=== PATIENT | female | born 1985 | race Caucasian/White ===

== ENCOUNTER 2019-04-01 20:27 | Inpatient (IN) | payer OTHER ==
[~2019-04-01] VITALS: Ht 162.6 cm; Wt 74.0 kg
[~2019-04-01 20:27] MED LIST: INSNOV SQ; LE SQ; MUPI15CR TP; PREN1TAB80 PO
[2019-04-01] MEDS ORDERED: TRAZ-220 PO (21:15)
[2019-04-01] MEDS ORDERED: ASPI-1192 PO (21:15)
[2019-04-01] MEDS ORDERED: INSU100V SQ (21:15)
[2019-04-01] MEDS ORDERED: PRAZ2 PO (21:15)
[2019-04-01] MEDS ORDERED: LORazepam 2 MG TABLET PO ONE (21:15)
[2019-04-01] MEDS ORDERED: DEXT15LI PO (21:15)
[2019-04-01] MEDS ORDERED: INSULIN REGULAR, HUMAN 100 UNITS/ML SQ ONE ×2 (21:15→22:00)
[2019-04-01] MEDS ORDERED: HYDR-4031 PO (21:15)
[2019-04-01] MEDS ORDERED: OMEP20 PO (21:15)
[2019-04-01] MEDS ORDERED: TRAZ-252 PO (21:15)
[2019-04-01] MEDS ORDERED: IBUP-2071 PO (21:15)
[2019-04-01 21:24] LABS: GLUCOSE,POINT OF CARE 198 MG/DL (70-110)
[2019-04-01] MEDS ORDERED: ACETAMINOPHEN 325 MG TABLET PO PRN (21:30)
[2019-04-01] MEDS ORDERED: IBUPROFEN 600 MG TABLET PO ONE (21:30)
[2019-04-01] MEDS ORDERED: ONDANSETRON HCL 4 MG/2 ML VIAL IVP PRN (21:30)
[2019-04-01] MEDS ORDERED: 0.9% SODIUM CHLORIDE 10 ML SYRINGE IVP PRN (21:30)
[2019-04-01 21:39] LABS: BASOPHILS % (AUTO) 0.6 % (0.0-2.0); EOSINOPHILS % (AUTO) 1.7 % (1.0-6.0); HEMATOCRIT 40.5 % (36-46); HEMOGLOBIN 13.7 g/dL (12.0-16.0); LYMPHOCYTES # (AUTO) 1.9 K/uL (1.0-4.8); MEAN CORPUSCULAR HEMOGLOBIN 29.6 pg (26.0-34.0); MEAN CORPUSCULAR HGB CONC 33.9 G/dL (31.0-37.0); MEAN CORPUSCULAR VOLUME 87 fL (80-100); MONOCYTES # (AUTO) 0.4 K/uL (0.1-1.0); MONOCYTES % (AUTO) 5.8 % (2.0-9.0); NEUTROPHILS # (AUTO) 4.6 K/uL (1.8-7.7); NEUTROPHILS % (AUTO) 64.9 % (40.0-70.0); PLATELET COUNT (AUTO) 226 K/uL (150-450); RED BLOOD CELL COUNT(AUTO) 4.64 MIL/uL (4.00-5.20); RED CELL DISTRIBUTION WIDTH 13.8 % (11.5-14.5)
[2019-04-01 21:55] LABS: ANION GAP 8 mmol/L (8-16); CALCIUM, TOTAL 8.7 mg/dL (8.8-10.5); CARBON DIOXIDE 28 mmol/L (22-29); CHLORIDE 101 mmol/L (98-107); GLOMERULAR FILTR. RATE CALC > 60 mL/min (>60); GLUCOSE,RANDOM 222 mg/dL (70-110); POTASSIUM 3.8 mmol/L (3.5-5.1); SODIUM SERUM 137 mmol/L (136-145); UREA NITROGEN, BLOOD 8 mg/dL (7-18)
[2019-04-01 22:00] LABS: AMPHET/METH SCREEN,URINE NEGATIVE (NEGATIVE); BARBITURATE SCREEN, URINE NEGATIVE (NEGATIVE); BENZODIAZEPINES SCREEN,URINE NEGATIVE (NEGATIVE); CANNABINOID SCREEN,URINE NEGATIVE (NEGATIVE); COCAINE SCREEN,URINE NEGATIVE (NEGATIVE); METHADONE SCREEN, URINE NEGATIVE (NEGATIVE); OPIATE SCREEN,URINE NEGATIVE (NEGATIVE); PHENCYCLIDINE SCREEN,URINE NEGATIVE (NEGATIVE)
[2019-04-01 22:07] LABS: ALANINE AMINOTRANSFERASE 14 U/L (12-78); ALBUMIN 3.8 g/dL (3.4-5.0); ALKALINE PHOSPHATASE 81 U/L (46-116); ASPARTATE AMINOTRANSFERASE 14 U/L (15-37); BILIRUBIN,TOTAL 0.6 mg/dL (0.1-1.0); HCG,QUANTITATIVE < 1 mIU/mL (0-6); TOTAL PROTEIN, SERUM 7.5 g/dL (6.4-8.2)
[2019-04-01] MEDS ORDERED: NICOTINE 14 MG/24 HOUR PATCH TD PRN (22:30)
[2019-04-01] MEDS ORDERED: LOPERAMIDE HCL 2 MG CAPSULE PO PRN (22:30)
[2019-04-01] MEDS ORDERED: DOCUSATE SODIUM 100 MG CAPSULE PO PRN (22:30)
[2019-04-01] MEDS ORDERED: MAGNESIUM HYDROXIDE SUSPENSION 30 ML UDCUP PO PRN (22:30)
[2019-04-01] MEDS ORDERED: CloNIDine HCL 0.1 MG TABLET PO PRN (22:30)
[2019-04-01] MEDS ORDERED: MAG HYDROX/AL HYDROX/SIMETH ES 30 ML SUSPENSION UDCUP PO PRN (22:30)
[2019-04-01] MEDS ORDERED: ALBUTEROL SULFATE HFA 90 MCG/PUFF 8 GM INHALER IH PRN (22:30)
[2019-04-01] MEDS ORDERED: DEXTROSE 50%-WATER 25 GM/50 ML SYRINGE IVP PRN (22:30)
[2019-04-01] MEDS ORDERED: PETROLATUM,WHITE 28 GM JELLY TP PRN (22:30)
[2019-04-01 22:39] VITALS: BP 122/79
[2019-04-01] MEDS ORDERED: INFLUENZA VIRUS VACCINE QVS 2019-20 (3YR+)/PF 60 MCG/0.5 ML SYRINGE IM ONE (23:00)
[2019-04-01] MEDS ORDERED: PNEUMOCOCCAL VACCINE POLYVALENT 0.5 ML VIAL [PPSV23] IM ONE (23:00)
[2019-04-02] MEDS: TraZODone HCL 100 MG TABLET PO PRN ×2 (00:52→20:22)
[2019-04-02 06:26] VITALS: BP 106/66
[2019-04-02] MEDS: INSULIN LISPRO 100 UNITS/ML SQ PRN ×3 (06:36→20:23)
[2019-04-02 06:47] LABS: GLUCOMETER DEV NAME(LOC) 6N.1; GLUCOSE,POINT OF CARE 345 MG/DL (70-110)
[2019-04-02 07:39] LABS: HEMOGLOBIN A1C 9.9 % (4.5-6.2)
[2019-04-02 07:54] LABS: THYROID STIMULATING HORMONE 1.59 uIU/mL (0.36-3.74)
[2019-04-02 09:00] VITALS: BP 102/67
[2019-04-02] MEDS: ESCITALOPRAM OXALATE 10 MG TABLET PO SCH (09:00)
[2019-04-02] MEDS: HydrOXYzine PAMOATE 50 MG CAPSULE PO SCH ×2 (10:15→20:22)
[2019-04-02] MEDS: OMEPRAZOLE 20 MG CAPSULE PO SCH (10:15)
[2019-04-02] MEDS: INSULIN GLARGINE,HUM.REC.ANLOG 100 UNITS/ML SQ SCH (10:20)
[2019-04-02] MEDS: GuaiFENesin/D-METHORPHAN [SUGAR-FREE] 200-20MG/10 ML SYRUP UDCUP PO PRN (17:05)
[2019-04-02] MEDS ORDERED: INSLAN SQ (17:41)
[2019-04-02 18:09] LABS: GLUCOMETER DEV NAME(LOC) 6N.1; GLUCOSE,POINT OF CARE 238 MG/DL (70-110)
[2019-04-02 18:09] LABS: GLUCOMETER DEV NAME(LOC) 6N.1; GLUCOSE,POINT OF CARE 137 MG/DL (70-110)
[2019-04-02 19:55] VITALS: BP 97/72
[2019-04-02] MEDS: GABAPENTIN 300 MG CAPSULE PO SCH (20:22)
[2019-04-02] MEDS: PRAZOSIN HCL 2 MG CAPSULE PO SCH (20:22)
[2019-04-02 21:34] LABS: GLUCOMETER DEV NAME(LOC) 6N.1; GLUCOSE,POINT OF CARE 203 MG/DL (70-110)
[2019-04-02] MEDS: ACETAMINOPHEN 325 MG TABLET PO PRN (22:28)
[2019-04-03 00:04] VITALS: BP 96/62
[2019-04-03] MEDS: GuaiFENesin/D-METHORPHAN [SUGAR-FREE] 200-20MG/10 ML SYRUP UDCUP PO PRN ×2 (02:07→08:07)
[2019-04-03 06:05] VITALS: BP 96/63
[2019-04-03] MEDS: INSULIN LISPRO 100 UNITS/ML SQ PRN ×3 (06:05→18:01)
[2019-04-03 07:45] VITALS: BP 103/67
[2019-04-03 08:03] LABS: GLUCOMETER DEV NAME(LOC) 6N.1; GLUCOSE,POINT OF CARE 220 MG/DL (70-110)
[2019-04-03 08:03] LABS: GLUCOMETER DEV NAME(LOC) 6N.1; GLUCOSE,POINT OF CARE 289 MG/DL (70-110)
[2019-04-03] MEDS: HydrOXYzine PAMOATE 50 MG CAPSULE PO SCH (08:06)
[2019-04-03] MEDS: OMEPRAZOLE 20 MG CAPSULE PO SCH (08:06)
[2019-04-03] MEDS: ESCITALOPRAM OXALATE 10 MG TABLET PO SCH (08:07)
[2019-04-03] MEDS: INSULIN GLARGINE,HUM.REC.ANLOG 100 UNITS/ML SQ SCH (08:09)
[2019-04-03 11:38] VITALS: BP 103/65
[2019-04-03] MEDS: BusPIRone HCL 5 MG TABLET PO SCH ×3 (12:10→20:28)
[2019-04-03] MEDS: IBUPROFEN 400 MG TABLET PO PRN (12:11)
[2019-04-03 12:18] LABS: GLUCOMETER DEV NAME(LOC) 6N.1; GLUCOSE,POINT OF CARE 221 MG/DL (70-110)
[2019-04-03 15:42] VITALS: BP 95/66
[2019-04-03] MEDS: ACETAMINOPHEN 325 MG TABLET PO PRN (15:58)
[2019-04-03 19:05] LABS: GLUCOMETER DEV NAME(LOC) 6N.1; GLUCOSE,POINT OF CARE 204 MG/DL (70-110)
[2019-04-03 19:47] VITALS: BP 95/56
[2019-04-03] MEDS: PRAZOSIN HCL 2 MG CAPSULE PO SCH (20:28)
[2019-04-03] MEDS: GABAPENTIN 300 MG CAPSULE PO SCH (20:28)
[2019-04-03 21:16] LABS: GLUCOMETER DEV NAME(LOC) 6N.1; GLUCOSE,POINT OF CARE 137 MG/DL (70-110)
[2019-04-04] MEDS: INSULIN LISPRO 100 UNITS/ML SQ PRN ×4 (05:50→20:04)
[2019-04-04] MEDS: GuaiFENesin/D-METHORPHAN [SUGAR-FREE] 200-20MG/10 ML SYRUP UDCUP PO PRN ×2 (05:50→20:03)
[2019-04-04 07:13] LABS: ANION GAP 8 mmol/L (8-16); CALCIUM, TOTAL 8.2 mg/dL (8.8-10.5); CARBON DIOXIDE 27 mmol/L (22-29); CHLORIDE 103 mmol/L (98-107); CREATININE 0.68 mg/dL (0.60-1.30); GLOMERULAR FILTR. RATE CALC > 60 mL/min (>60); GLUCOSE,RANDOM 188 mg/dL (70-110); POTASSIUM 3.7 mmol/L (3.5-5.1); SODIUM SERUM 138 mmol/L (136-145)
[2019-04-04 07:28] LABS: UREA NITROGEN, BLOOD 13 mg/dL (7-18)
[2019-04-04 07:30] LABS: GLUCOMETER DEV NAME(LOC) 6N.1; GLUCOSE,POINT OF CARE 157 MG/DL (70-110)
[2019-04-04 07:50] VITALS: BP 97/68
[2019-04-04] MEDS: FLUoxetine HCL 20 MG CAPSULE PO SCH (08:18)
[2019-04-04] MEDS: BusPIRone HCL 5 MG TABLET PO SCH ×3 (08:18→20:03)
[2019-04-04] MEDS: OMEPRAZOLE 20 MG CAPSULE PO SCH (08:18)
[2019-04-04] MEDS: INSULIN GLARGINE,HUM.REC.ANLOG 100 UNITS/ML SQ SCH (08:19)
[2019-04-04] MEDS ORDERED: CITALOPRAM HYDROBROMIDE 20 MG TABLET PO SCH (09:00)
[2019-04-04 12:15] VITALS: BP 102/68
[2019-04-04] MEDS: ACETAMINOPHEN 325 MG TABLET PO PRN ×2 (12:17→23:41)
[2019-04-04 12:38] LABS: GLUCOMETER DEV NAME(LOC) 6N.1; GLUCOSE,POINT OF CARE 292 MG/DL (70-110)
[2019-04-04 16:09] VITALS: BP 102/74
[2019-04-04] MEDS: IBUPROFEN 400 MG TABLET PO PRN (16:21)
[2019-04-04 19:25] VITALS: BP 91/60
[2019-04-04 20:03] LABS: GLUCOMETER DEV NAME(LOC) 6N.1; GLUCOSE,POINT OF CARE 287 MG/DL (70-110)
[2019-04-04] MEDS: PRAZOSIN HCL 2 MG CAPSULE PO SCH (20:03)
[2019-04-04] MEDS: GABAPENTIN 300 MG CAPSULE PO SCH (20:03)
[2019-04-04] MEDS: TraZODone HCL 100 MG TABLET PO PRN (20:03)
[2019-04-04 20:28] LABS: GLUCOMETER DEV NAME(LOC) 6N.1; GLUCOSE,POINT OF CARE 189 MG/DL (70-110)
[2019-04-04 23:35] VITALS: BP 94/62
[2019-04-05 06:02] VITALS: BP 96/67
[2019-04-05] MEDS: IBUPROFEN 400 MG TABLET PO PRN ×2 (06:38→22:00)
[2019-04-05] MEDS: GuaiFENesin/D-METHORPHAN [SUGAR-FREE] 200-20MG/10 ML SYRUP UDCUP PO PRN ×2 (06:40→12:37)
[2019-04-05 07:38] VITALS: BP_SYST 108; BP_DIAS 54; BP_DIAS 75
[2019-04-05] MEDS: OMEPRAZOLE 20 MG CAPSULE PO SCH (07:59)
[2019-04-05] MEDS: BusPIRone HCL 5 MG TABLET PO SCH ×3 (07:59→20:28)
[2019-04-05] MEDS: FLUoxetine HCL 20 MG CAPSULE PO SCH (07:59)
[2019-04-05] MEDS: INSULIN GLARGINE,HUM.REC.ANLOG 100 UNITS/ML SQ SCH (09:53)
[2019-04-05 11:24] VITALS: BP 103/66
[2019-04-05] MEDS: INSULIN LISPRO 100 UNITS/ML SQ PRN ×3 (12:37→21:10)
[2019-04-05 16:06] VITALS: BP 109/71
[2019-04-05 19:55] VITALS: BP 101/68
[2019-04-05 19:58] LABS: GLUCOMETER DEV NAME(LOC) 6N.1; GLUCOSE,POINT OF CARE 224 MG/DL (70-110)
[2019-04-05 19:58] LABS: GLUCOMETER DEV NAME(LOC) 6N.1; GLUCOSE,POINT OF CARE 79 MG/DL (70-110)
[2019-04-05 19:58] LABS: GLUCOMETER DEV NAME(LOC) 6N.1; GLUCOSE,POINT OF CARE 250 MG/DL (70-110)
[2019-04-05] MEDS: GABAPENTIN 300 MG CAPSULE PO SCH (20:27)
[2019-04-05] MEDS: PRAZOSIN HCL 1 MG CAPSULE PO SCH (21:00)
[2019-04-05] MEDS: TraZODone HCL 100 MG TABLET PO PRN (21:10)
[2019-04-05] MEDS: ONDANSETRON HCL 4 MG TABLET PO PRN (23:36)
[2019-04-06] VITALS (8 sets, daily range): BP systolic 89–103; BP diastolic 55–69
[2019-04-06] MEDS: GuaiFENesin/D-METHORPHAN [SUGAR-FREE] 200-20MG/10 ML SYRUP UDCUP PO PRN ×2 (01:58→11:42)
[2019-04-06] MEDS: ACETAMINOPHEN 325 MG TABLET PO PRN ×2 (06:13→15:40)
[2019-04-06] MEDS: FLUoxetine HCL 20 MG CAPSULE PO SCH (08:39)
[2019-04-06] MEDS: OMEPRAZOLE 20 MG CAPSULE PO SCH (08:39)
[2019-04-06] MEDS: BusPIRone HCL 5 MG TABLET PO SCH ×3 (08:39→21:40)
[2019-04-06] MEDS: INSULIN GLARGINE,HUM.REC.ANLOG 100 UNITS/ML SQ SCH (08:45)
[2019-04-06 12:08] LABS: GLUCOMETER DEV NAME(LOC) 6N.1; GLUCOSE,POINT OF CARE 163 MG/DL (70-110)
[2019-04-06 12:08] LABS: GLUCOMETER DEV NAME(LOC) 6N.1; GLUCOSE,POINT OF CARE 158 MG/DL (70-110)
[2019-04-06 12:08] LABS: GLUCOMETER DEV NAME(LOC) 6N.1; GLUCOSE,POINT OF CARE 43 MG/DL (70-110)
[2019-04-06] MEDS: INSULIN LISPRO 100 UNITS/ML SQ PRN ×3 (12:13→21:08)
[2019-04-06 17:06] LABS: GLUCOMETER DEV NAME(LOC) 6N.2; GLUCOSE,POINT OF CARE 305 MG/DL (70-110)
[2019-04-06 17:07] LABS: GLUCOMETER DEV NAME(LOC) 4E.2; GLUCOSE,POINT OF CARE 161 MG/DL (70-110)
[2019-04-06 17:07] LABS: GLUCOMETER DEV NAME(LOC) 4E.2; GLUCOSE,POINT OF CARE 255 MG/DL (70-110)
[2019-04-06 20:28] LABS: GLUCOMETER DEV NAME(LOC) 6N.1; GLUCOSE,POINT OF CARE 198 MG/DL (70-110)
[2019-04-06 20:49] LABS: GLUCOMETER DEV NAME(LOC) 4E.2; GLUCOSE,POINT OF CARE 361 MG/DL (70-110)
[2019-04-06] MEDS: ONDANSETRON HCL 4 MG TABLET PO PRN (20:51)
[2019-04-06] MEDS: GABAPENTIN 300 MG CAPSULE PO SCH (21:04)
[2019-04-06] MEDS: IBUPROFEN 400 MG TABLET PO PRN (21:04)
[2019-04-06] MEDS: PRAZOSIN HCL 1 MG CAPSULE PO SCH (21:05)
[2019-04-07] VITALS (7 sets, daily range): BP systolic 97–115; BP diastolic 62–81
[2019-04-07] MEDS: INSULIN LISPRO 100 UNITS/ML SQ PRN ×4 (06:14→20:54)
[2019-04-07] MEDS: FLUoxetine HCL 20 MG CAPSULE PO SCH (08:01)
[2019-04-07] MEDS: OMEPRAZOLE 20 MG CAPSULE PO SCH (08:01)
[2019-04-07] MEDS: GABAPENTIN 300 MG CAPSULE PO SCH ×3 (08:01→20:24)
[2019-04-07] MEDS: BusPIRone HCL 5 MG TABLET PO SCH ×3 (08:02→20:24)
[2019-04-07] MEDS: INSULIN GLARGINE,HUM.REC.ANLOG 100 UNITS/ML SQ SCH (08:08)
[2019-04-07 10:07] LABS: GLUCOMETER DEV NAME(LOC) 4E.2; GLUCOSE,POINT OF CARE 257 MG/DL (70-110)
[2019-04-07 11:44] LABS: GLUCOMETER DEV NAME(LOC) 6N.1; GLUCOSE,POINT OF CARE 244 MG/DL (70-110)
[2019-04-07] MEDS: ACETAMINOPHEN 325 MG TABLET PO PRN (14:51)
[2019-04-07 17:36] LABS: GLUCOMETER DEV NAME(LOC) 6N.2; GLUCOSE,POINT OF CARE 184 MG/DL (70-110)
[2019-04-07 21:34] LABS: GLUCOMETER DEV NAME(LOC) 6N.1; GLUCOSE,POINT OF CARE 271 MG/DL (70-110)
[2019-04-07] MEDS: PRAZOSIN HCL 1 MG CAPSULE PO SCH (21:55)
[2019-04-07] MEDS: IBUPROFEN 400 MG TABLET PO PRN (21:57)
[2019-04-08 00:39] VITALS: BP 96/62
[2019-04-08 04:00] VITALS: BP 99/63
[2019-04-08] MEDS: INSULIN LISPRO 100 UNITS/ML SQ PRN ×4 (06:07→20:29)
[2019-04-08 08:00] VITALS: BP 97/67
[2019-04-08] MEDS: FLUoxetine HCL 20 MG CAPSULE PO SCH (08:46)
[2019-04-08] MEDS: GABAPENTIN 300 MG CAPSULE PO SCH ×3 (08:47→20:25)
[2019-04-08] MEDS: OMEPRAZOLE 20 MG CAPSULE PO SCH (08:47)
[2019-04-08] MEDS: BusPIRone HCL 5 MG TABLET PO SCH ×3 (08:48→20:25)
[2019-04-08] MEDS: INSULIN GLARGINE,HUM.REC.ANLOG 100 UNITS/ML SQ SCH (08:51)
[2019-04-08] MEDS: IBUPROFEN 400 MG TABLET PO PRN (08:56)
[2019-04-08] MEDS: GuaiFENesin/D-METHORPHAN [SUGAR-FREE] 200-20MG/10 ML SYRUP UDCUP PO PRN (08:56)
[2019-04-08 11:54] VITALS: BP 115/71
[2019-04-08 17:35] LABS: GLUCOMETER DEV NAME(LOC) 6N.1; GLUCOSE,POINT OF CARE 227 MG/DL (70-110)
[2019-04-08 19:39] LABS: GLUCOMETER DEV NAME(LOC) 6N.2; GLUCOSE,POINT OF CARE 260 MG/DL (70-110)
[2019-04-08 19:40] LABS: GLUCOMETER DEV NAME(LOC) 6N.2; GLUCOSE,POINT OF CARE 230 MG/DL (70-110)
[2019-04-08 19:55] VITALS: BP 106/81
[2019-04-08 20:21] LABS: GLUCOMETER DEV NAME(LOC) 6N.2; GLUCOSE,POINT OF CARE 298 MG/DL (70-110)
[2019-04-08] MEDS: PRAZOSIN HCL 1 MG CAPSULE PO SCH (20:30)
[2019-04-09 00:53] VITALS: BP 99/69
[2019-04-09] MEDS: TraZODone HCL 100 MG TABLET PO PRN (00:57)
[2019-04-09 05:08] VITALS: BP 94/64
[2019-04-09] MEDS: INSULIN LISPRO 100 UNITS/ML SQ PRN ×4 (06:37→20:23)
[2019-04-09 08:03] VITALS: BP 97/73
[2019-04-09 08:06] LABS: GLUCOMETER DEV NAME(LOC) 4E.2; GLUCOSE,POINT OF CARE 188 MG/DL (70-110)
[2019-04-09] MEDS: OMEPRAZOLE 20 MG CAPSULE PO SCH (09:15)
[2019-04-09] MEDS: FLUoxetine HCL 20 MG CAPSULE PO SCH (09:16)
[2019-04-09] MEDS: GABAPENTIN 300 MG CAPSULE PO SCH ×3 (09:16→20:13)
[2019-04-09] MEDS: BusPIRone HCL 5 MG TABLET PO SCH ×3 (09:16→20:12)
[2019-04-09] MEDS: INSULIN GLARGINE,HUM.REC.ANLOG 100 UNITS/ML SQ SCH (09:22)
[2019-04-09 11:08] VITALS: BP 106/69
[2019-04-09 13:53] LABS: GLUCOMETER DEV NAME(LOC) 6N.2; GLUCOSE,POINT OF CARE 193 MG/DL (70-110)
[2019-04-09 20:10] VITALS: BP 93/56
[2019-04-09] MEDS: PRAZOSIN HCL 1 MG CAPSULE PO SCH (20:12)
[2019-04-09] MEDS: IBUPROFEN 400 MG TABLET PO PRN (20:12)
[2019-04-10 04:55] VITALS: BP 97/59
[2019-04-10] MEDS: INSULIN LISPRO 100 UNITS/ML SQ PRN ×4 (06:42→20:32)
[2019-04-10] MEDS: BusPIRone HCL 5 MG TABLET PO SCH ×5 (08:08→20:28)
[2019-04-10] MEDS: OMEPRAZOLE 20 MG CAPSULE PO SCH (08:08)
[2019-04-10] MEDS: GABAPENTIN 300 MG CAPSULE PO SCH (08:08)
[2019-04-10] MEDS: FLUoxetine HCL 20 MG CAPSULE PO SCH (08:08)
[2019-04-10 08:09] VITALS: BP 91/56
[2019-04-10] MEDS: INSULIN GLARGINE,HUM.REC.ANLOG 100 UNITS/ML SQ SCH (08:09)
[2019-04-10 12:16] LABS: GLUCOMETER DEV NAME(LOC) 4E.2; GLUCOSE,POINT OF CARE 250 MG/DL (70-110)
[2019-04-10 12:18] LABS: GLUCOMETER DEV NAME(LOC) 4E.2; GLUCOSE,POINT OF CARE 171 MG/DL (70-110)
[2019-04-10 15:59] VITALS: BP 102/71
[2019-04-10 17:39] LABS: GLUCOMETER DEV NAME(LOC) 6N.2; GLUCOSE,POINT OF CARE 238 MG/DL (70-110)
[2019-04-10 18:33] LABS: GLUCOMETER DEV NAME(LOC) 4E.2; GLUCOSE,POINT OF CARE 159 MG/DL (70-110)
[2019-04-10] MEDS: ACETAMINOPHEN 325 MG TABLET PO PRN (20:29)
[2019-04-10] MEDS: PRAZOSIN HCL 1 MG CAPSULE PO SCH (20:33)
[2019-04-10 20:34] VITALS: BP 98/60
[2019-04-10 20:52] VITALS: BP 112/71
[2019-04-11 00:28] VITALS: BP 109/63
[2019-04-11] MEDS: TraZODone HCL 100 MG TABLET PO PRN (00:32)
[2019-04-11 02:34] LABS: GLUCOMETER DEV NAME(LOC) 6N.1; GLUCOSE,POINT OF CARE 108 MG/DL (70-110)
[2019-04-11 03:48] LABS: GLUCOMETER DEV NAME(LOC) 4E.2; GLUCOSE,POINT OF CARE 48 MG/DL (70-110)
[2019-04-11 03:48] LABS: GLUCOMETER DEV NAME(LOC) 4E.2; GLUCOSE,POINT OF CARE 282 MG/DL (70-110)
[2019-04-11 04:05] LABS: GLUCOMETER DEV NAME(LOC) 6N.2; GLUCOSE,POINT OF CARE 82 MG/DL (70-110)
[2019-04-11 04:45] VITALS: BP 93/57
[2019-04-11] MEDS: INSULIN LISPRO 100 UNITS/ML SQ PRN ×2 (07:04→20:41)
[2019-04-11 08:08] LABS: GLUCOMETER DEV NAME(LOC) 6N.1; GLUCOSE,POINT OF CARE 232 MG/DL (70-110)
[2019-04-11] MEDS: INSULIN GLARGINE,HUM.REC.ANLOG 100 UNITS/ML SQ SCH (09:00)
[2019-04-11] MEDS: OMEPRAZOLE 20 MG CAPSULE PO SCH (09:04)
[2019-04-11] MEDS: BusPIRone HCL 5 MG TABLET PO SCH ×3 (09:04→20:38)
[2019-04-11] MEDS: FLUoxetine HCL 20 MG CAPSULE PO SCH (09:04)
[2019-04-11 09:20] LABS: GLUCOMETER DEV NAME(LOC) 6N.1; GLUCOSE,POINT OF CARE 83 MG/DL (70-110)
[2019-04-11] MEDS: GABAPENTIN 300 MG CAPSULE PO SCH ×3 (12:28→20:38)
[2019-04-11 13:21] LABS: GLUCOMETER DEV NAME(LOC) 6N.1; GLUCOSE,POINT OF CARE 250 MG/DL (70-110)
[2019-04-11 13:21] LABS: GLUCOMETER DEV NAME(LOC) 6N.1; GLUCOSE,POINT OF CARE 58 MG/DL (70-110)
[2019-04-11 15:10] VITALS: BP 100/66
[2019-04-11] MEDS: ACETAMINOPHEN 325 MG TABLET PO PRN (17:36)
[2019-04-11 19:43] VITALS: BP 95/66
[2019-04-11] MEDS: TraZODone HCL 150 MG TABLET PO SCH (20:38)
[2019-04-11] MEDS: PRAZOSIN HCL 1 MG CAPSULE PO SCH (20:39)
[2019-04-11 23:06] LABS: GLUCOMETER DEV NAME(LOC) 6N.1; GLUCOSE,POINT OF CARE 287 MG/DL (70-110)
[2019-04-12 00:20] VITALS: BP 99/62
[2019-04-12 05:45] VITALS: BP 107/52
[2019-04-12 07:41] LABS: GLUCOMETER DEV NAME(LOC) 4E.2; GLUCOSE,POINT OF CARE 124 MG/DL (70-110)
[2019-04-12 07:41] LABS: GLUCOMETER DEV NAME(LOC) 4E.2; GLUCOSE,POINT OF CARE 262 MG/DL (70-110)
[2019-04-12 08:11] VITALS: BP 103/50
[2019-04-12] MEDS: OMEPRAZOLE 20 MG CAPSULE PO SCH (08:14)
[2019-04-12] MEDS: FLUoxetine HCL 20 MG CAPSULE PO SCH (08:14)
[2019-04-12] MEDS: GABAPENTIN 300 MG CAPSULE PO SCH ×3 (08:14→21:06)
[2019-04-12] MEDS: BusPIRone HCL 5 MG TABLET PO SCH ×3 (08:14→21:07)
[2019-04-12] MEDS ORDERED: INSULIN GLARGINE,HUM.REC.ANLOG 100 UNITS/ML SQ SCH (09:00)
[2019-04-12] MEDS: INSULIN LISPRO 100 UNITS/ML SQ PRN ×3 (11:18→21:12)
[2019-04-12 14:15] LABS: GLUCOMETER DEV NAME(LOC) 6N.1; GLUCOSE,POINT OF CARE 273 MG/DL (70-110)
[2019-04-12 16:08] VITALS: BP 97/68
[2019-04-12] MEDS ORDERED: IBUPROFEN 800 MG TABLET PO PRN (17:45)
[2019-04-12 17:48] LABS: GLUCOMETER DEV NAME(LOC) 4E.2; GLUCOSE,POINT OF CARE 313 MG/DL (70-110)
[2019-04-12] MEDS ORDERED: SODIUM CHLORIDE 0.9% 500 ML IV ONE (17:52)
[2019-04-12] MEDS: PRAZOSIN HCL 1 MG CAPSULE PO SCH (21:00)
[2019-04-12 21:03] VITALS: BP 99/68
[2019-04-12] MEDS: TraZODone HCL 150 MG TABLET PO SCH (21:06)
[2019-04-13 00:48] LABS: GLUCOMETER DEV NAME(LOC) 6N.1; GLUCOSE,POINT OF CARE 282 MG/DL (70-110)
[2019-04-13 05:18] VITALS: BP 96/61
[2019-04-13] MEDS: INSULIN LISPRO 100 UNITS/ML SQ PRN ×3 (06:46→17:10)
[2019-04-13 08:05] VITALS: BP 98/64
[2019-04-13] MEDS: GABAPENTIN 300 MG CAPSULE PO SCH ×3 (08:40→22:45)
[2019-04-13] MEDS: BusPIRone HCL 5 MG TABLET PO SCH ×3 (08:40→22:45)
[2019-04-13] MEDS: FLUoxetine HCL 20 MG CAPSULE PO SCH (08:40)
[2019-04-13] MEDS: OMEPRAZOLE 20 MG CAPSULE PO SCH (08:40)
[2019-04-13] MEDS: INSULIN GLARGINE,HUM.REC.ANLOG 100 UNITS/ML SQ SCH (08:43)
[2019-04-13] MEDS: ACETAMINOPHEN 325 MG TABLET PO PRN (14:12)
[2019-04-13 15:38] VITALS: BP 106/65
[2019-04-13 17:12] LABS: GLUCOMETER DEV NAME(LOC) 6N.2; GLUCOSE,POINT OF CARE 231 MG/DL (70-110)
[2019-04-13] MEDS: PRAZOSIN HCL 2 MG CAPSULE PO SCH (20:00)
[2019-04-13 20:21] VITALS: BP 93/59
[2019-04-13 20:35] LABS: GLUCOMETER DEV NAME(LOC) 4E.2; GLUCOSE,POINT OF CARE 250 MG/DL (70-110)
[2019-04-13 20:35] LABS: GLUCOMETER DEV NAME(LOC) 4E.2; GLUCOSE,POINT OF CARE 215 MG/DL (70-110)
[2019-04-13 21:38] VITALS: BP 100/70
[2019-04-13 22:36] VITALS: BP 108/76
[2019-04-13] MEDS: TraZODone HCL 150 MG TABLET PO SCH (22:46)
[2019-04-13 23:43] LABS: GLUCOMETER DEV NAME(LOC) 6N.2; GLUCOSE,POINT OF CARE 197 MG/DL (70-110)
[2019-04-14] MEDS: IBUPROFEN 400 MG TABLET PO PRN (05:12)
[2019-04-14] MEDS: ONDANSETRON HCL 4 MG TABLET PO PRN (05:13)
[2019-04-14 05:44] LABS: GLUCOMETER DEV NAME(LOC) 4E.2; GLUCOSE,POINT OF CARE 172 MG/DL (70-110)
[2019-04-14 06:41] VITALS: BP 101/60
[2019-04-14] MEDS: FLUoxetine HCL 20 MG CAPSULE PO SCH (09:21)
[2019-04-14] MEDS: OMEPRAZOLE 20 MG CAPSULE PO SCH (09:21)
[2019-04-14] MEDS: BusPIRone HCL 5 MG TABLET PO SCH ×3 (09:21→21:04)
[2019-04-14] MEDS: GABAPENTIN 300 MG CAPSULE PO SCH ×3 (09:21→21:05)
[2019-04-14] MEDS: INSULIN GLARGINE,HUM.REC.ANLOG 100 UNITS/ML SQ SCH (09:25)
[2019-04-14] MEDS: INSULIN LISPRO 100 UNITS/ML SQ PRN ×4 (09:26→21:55)
[2019-04-14 09:38] VITALS: BP 98/64
[2019-04-14 15:48] VITALS: BP 91/72
[2019-04-14 18:25] VITALS: BP 104/72
[2019-04-14 18:41] LABS: GLUCOMETER DEV NAME(LOC) 6N.1; GLUCOSE,POINT OF CARE 226 MG/DL (70-110)
[2019-04-14 20:09] VITALS: BP 104/77
[2019-04-14] MEDS: TraZODone HCL 150 MG TABLET PO SCH (21:03)
[2019-04-14] MEDS: PRAZOSIN HCL 2 MG CAPSULE PO SCH (21:07)
[2019-04-15 03:52] LABS: GLUCOMETER DEV NAME(LOC) 4E.2; GLUCOSE,POINT OF CARE 302 MG/DL (70-110)
[2019-04-15 03:52] LABS: GLUCOMETER DEV NAME(LOC) 4E.2; GLUCOSE,POINT OF CARE 254 MG/DL (70-110)
[2019-04-15 05:15] VITALS: BP 91/60
[2019-04-15 06:25] VITALS: BP 95/65
[2019-04-15 08:09] VITALS: BP 97/60
[2019-04-15 08:37] LABS: GLUCOMETER DEV NAME(LOC) 6N.1; GLUCOSE,POINT OF CARE 189 MG/DL (70-110)
[2019-04-15] MEDS: FLUoxetine HCL 20 MG CAPSULE PO SCH (08:44)
[2019-04-15] MEDS: GABAPENTIN 300 MG CAPSULE PO SCH ×2 (08:44→15:41)
[2019-04-15] MEDS: OMEPRAZOLE 20 MG CAPSULE PO SCH (08:44)
[2019-04-15] MEDS: BusPIRone HCL 5 MG TABLET PO SCH ×2 (08:45→15:41)
[2019-04-15] MEDS: INSULIN GLARGINE,HUM.REC.ANLOG 100 UNITS/ML SQ SCH (08:50)
[2019-04-15] MEDS: INSULIN LISPRO 100 UNITS/ML SQ PRN (11:40)
[2019-04-15 11:52] LABS: GLUCOMETER DEV NAME(LOC) 6N.2; GLUCOSE,POINT OF CARE 250 MG/DL (70-110)
[2019-04-15] MEDS ORDERED: TRAZ150T79 PO (12:35)
[2019-04-15] MEDS ORDERED: FLUO20CA30 PO (12:40)
[2019-04-15] MEDS ORDERED: BUSP5TAB20 PO (12:41)
[2019-04-15] MEDS ORDERED: GABA600T10 PO (12:43)
== END 2019-04-15 17:50 | DRG 885 ==
LOC: EMS 20:59 → 6N 21:24 → 6S 22:46
PROVIDERS: ADMIT Internal Medicine; ATTEND Internal Medicine
PROC: 2W3EX1Z Immobilization of Right Hand using Splint (ICD-10-PCS; principal; 2019-04-01)
DX: F33.2 Major depressive disorder, recurrent severe without psychotic features (principal); R45.851 Suicidal ideations; E11.65 Type 2 diabetes mellitus with hyperglycemia; S60.221A Contusion of right hand, initial encounter; K21.9 Gastro-esophageal reflux disease without esophagitis; F43.12 Post-traumatic stress disorder, chronic; W22.01XA Walked into wall, initial encounter; Z72.0 Tobacco use; Z28.21 Immunization not carried out because of patient refusal; Z79.899 Other long term (current) drug therapy; Y93.89 Activity, other specified; Y92.240 Courthouse as the place of occurrence of the external cause; Y99.8 Other external cause status
CPT/HCPCS: 83036; 84443; G0480; J1815; J7040; Q0162

== ENCOUNTER 2019-05-30 13:08 | Emergency (ER) | payer OTHER ==
[~2019-05-30] VITALS: Ht 162.6 cm; Wt 72.7 kg
[~2019-05-30 13:08] MED LIST changes: +ASPI-1192 PO; +BUSP5TAB20 PO; +DEXT15LI PO; +FLUO20CA30 PO; +GABA600T10 PO; +INSLAN SQ; +INSU100V SQ; -LE SQ; -MUPI15CR TP; +OMEP20 PO; +PRAZ2 PO; -PREN1TAB80 PO; +TRAZ150T79 PO
[2019-05-30 13:30] VITALS: BP 103/81
[2019-05-30] MEDS ORDERED: AMOX1TAB15 PO (13:30)
[2019-05-30 15:59] LABS: GLUCOSE,POINT OF CARE 113 MG/DL (70-110)
== END 2019-05-30 14:40 | disposition home or self-care (01) ==
LOC: EMS 13:09
DX: S01.511A Laceration without foreign body of lip, initial encounter (principal); S40.021A Contusion of right upper arm, initial encounter; S40.022A Contusion of left upper arm, initial encounter; E11.9 Type 2 diabetes mellitus without complications; F32.9 Major depressive disorder, single episode, unspecified; Z79.4 Long term (current) use of insulin; Z79.899 Other long term (current) drug therapy; Y04.0XXA Assault by unarmed brawl or fight, initial encounter; Y93.89 Activity, other specified; Y92.89 Other specified places as the place of occurrence of the external cause; Y99.8 Other external cause status

== ENCOUNTER 2019-12-29 00:14 | Inpatient (IN) | payer OTHER ==
[~2019-12-29] VITALS: Ht 162.6 cm; Wt 66.0 kg
[2019-12-29] VITALS (9 sets, daily range): BP systolic 101–109; BP diastolic 64–75
[~2019-12-29 00:14] MED LIST changes: +AMOX1TAB15 PO
[2019-12-29 02:17] LABS: BASOPHILS % (AUTO) 1.9 % (0.0-2.0); HEMATOCRIT 45.3 % (36-46); LYMPHOCYTES # (AUTO) 2.4 K/uL (1.0-4.8); LYMPHOCYTES % (AUTO) 36.4 % (22.0-44.0); MEAN CORPUSCULAR HEMOGLOBIN 28.8 pg (26.0-34.0); MEAN CORPUSCULAR HGB CONC 33.1 G/dL (31.0-37.0); MEAN CORPUSCULAR VOLUME 87 fL (80-100); MONOCYTES # (AUTO) 0.5 K/uL (0.1-1.0); NEUTROPHILS # (AUTO) 3.4 K/uL (1.8-7.7); NEUTROPHILS % (AUTO) 51.7 % (40.0-70.0); PLATELET COUNT (AUTO) 199 K/uL (150-450); RED CELL DISTRIBUTION WIDTH 14.5 % (11.5-14.5)
[2019-12-29 02:29] LABS: ANION GAP 5 mmol/L (8-16); CARBON DIOXIDE 29 mmol/L (22-29); CHLORIDE 100 mmol/L (98-107); CREATININE 1.02 mg/dL (0.60-1.30); GLOMERULAR FILTR. RATE CALC > 60 mL/min (>60); GLUCOSE,RANDOM 195 mg/dL (70-110); POTASSIUM 3.9 mmol/L (3.5-5.1); SODIUM SERUM 134 mmol/L (136-145); UREA NITROGEN, BLOOD 15 mg/dL (7-18)
[2019-12-29 02:34] LABS: ALANINE AMINOTRANSFERASE 15 U/L (12-78); ALBUMIN 3.6 g/dL (3.4-5.0); ALKALINE PHOSPHATASE 84 U/L (46-116); ASPARTATE AMINOTRANSFERASE 20 U/L (15-37); BILIRUBIN,TOTAL 0.7 mg/dL (0.1-1.0); TOTAL PROTEIN, SERUM 7.4 g/dL (6.4-8.2)
[2019-12-29] MEDS ORDERED: ONDANSETRON HCL 4 MG/2 ML VIAL IVP PRN ×2 (04:30→05:00)
[2019-12-29] MEDS ORDERED: 0.9% SODIUM CHLORIDE 10 ML SYRINGE IVP PRN (04:30)
[2019-12-29] MEDS ORDERED: ACETAMINOPHEN 325 MG TABLET PO PRN (04:30)
[2019-12-29 04:55] LABS: HCG,QUANTITATIVE 1 mIU/mL (0-6)
[2019-12-29] MEDS ORDERED: LORazepam 2 MG TABLET PO PRN (05:00)
[2019-12-29] MEDS ORDERED: DEXTROSE 50%-WATER 25 GM/50 ML SYRINGE IVP PRN (05:15)
[2019-12-29 07:03] LABS: APPEARANCE,URINE TURBID (CLEAR); BILIRUBIN,URINE NEGATIVE (NEGATIVE); GLUCOSE, URINE (UA) 100 mg/dL (NEGATIVE); KETONES,URINE TRACE mg/dL (NEGATIVE); LEUKOCYTE ESTERASE ,URINE LARGE (NEGATIVE); NITRATE,URINE NEGATIVE (NEGATIVE); OCCULT BLOOD,URINE SMALL (NEGATIVE); PROTEIN,URINE POS 1+ (NEGATIVE); UROBILINOGEN,URINE 0.2 mg/dL (<=1.0)
[2019-12-29 07:09] LABS: AMPHET/METH SCREEN,URINE POSITIVE (NEGATIVE); BARBITURATE SCREEN, URINE NEGATIVE (NEGATIVE); BENZODIAZEPINES SCREEN,URINE NEGATIVE (NEGATIVE); CANNABINOID SCREEN,URINE NEGATIVE (NEGATIVE); COCAINE SCREEN,URINE NEGATIVE (NEGATIVE); METHADONE SCREEN, URINE NEGATIVE (NEGATIVE); OPIATE SCREEN,URINE NEGATIVE (NEGATIVE)
[2019-12-29 07:12] LABS: BACTERIA,URINE Many /HPF (None Seen); RBC,URINE 0-2 /HPF (0-2); SQUAMOUS EPITHELIAL CELL,UR Few /LPF (None Seen); WBC,URINE 51-100 /HPF (0-5)
[2019-12-29 07:13] LABS: PHENCYCLIDINE SCREEN,URINE NEGATIVE (NEGATIVE)
[2019-12-29] MEDS: HEPARIN SODIUM,PORCINE 5,000 UNITS/ML VIAL SQ SCH ×2 (07:24→15:26)
[2019-12-29 07:47] LABS: GLUCOSE,POINT OF CARE 83 MG/DL (70-110)
[2019-12-29] MEDS: INSULIN LISPRO 100 UNITS/ML SQ PRN ×3 (12:37→20:48)
[2019-12-29] MEDS: PANTOPRAZOLE SODIUM 40 MG DR TABLET PO SCH (12:40)
[2019-12-29 17:12] LABS: GLUCOMETER DEV NAME(LOC) 5N.1; GLUCOSE,POINT OF CARE 294 MG/DL (70-110)
[2019-12-29 20:51] LABS: GLUCOMETER DEV NAME(LOC) 5S.1; GLUCOSE,POINT OF CARE 230 MG/DL (70-110)
[2019-12-29] MEDS ORDERED: INSULIN GLARGINE,HUM.REC.ANLOG 100 UNITS/ML SQ SCH (21:00)
[2019-12-30] VITALS (10 sets, daily range): BP systolic 98–109; BP diastolic 58–76
[2019-12-30] MEDS: HEPARIN SODIUM,PORCINE 5,000 UNITS/ML VIAL SQ SCH ×3 (00:24→16:16)
[2019-12-30 02:20] LABS: GLUCOMETER DEV NAME(LOC) 5N.1; GLUCOSE,POINT OF CARE 208 MG/DL (70-110)
[2019-12-30] MEDS ORDERED: INSULIN GLARGINE,HUM.REC.ANLOG 100 UNITS/ML SQ ONE (06:30)
[2019-12-30] MEDS ORDERED: INSULIN LISPRO 100 UNITS/ML SQ ONE (06:30)
[2019-12-30] MEDS ORDERED: LORazepam 2 MG TABLET PO PRN (07:00)
[2019-12-30 07:17] LABS: GLUCOMETER DEV NAME(LOC) 5N.1; GLUCOSE,POINT OF CARE 534 MG/DL (70-110)
[2019-12-30 08:02] LABS: CALCIUM, TOTAL 8.7 mg/dL (8.8-10.5); CREATININE 1.16 mg/dL (0.60-1.30); POTASSIUM 3.6 mmol/L (3.5-5.1)
[2019-12-30] MEDS: LORazepam 2 MG TABLET PO SCH ×4 (08:31→21:20)
[2019-12-30] MEDS: PANTOPRAZOLE SODIUM 40 MG DR TABLET PO SCH (08:31)
[2019-12-30] MEDS ORDERED: DEXTROSE 50%-WATER 25 GM/50 ML SYRINGE IVP PRN (09:00)
[2019-12-30 15:58] LABS: GLUCOMETER DEV NAME(LOC) 5S.1; GLUCOSE,POINT OF CARE 112 MG/DL (70-110)
[2019-12-30 15:58] LABS: GLUCOMETER DEV NAME(LOC) 5N.1; GLUCOSE,POINT OF CARE 124 MG/DL (70-110)
[2019-12-30] MEDS: INSULIN LISPRO 100 UNITS/ML SQ PRN ×2 (17:36→21:27)
[2019-12-30 18:10] LABS: GLUCOMETER DEV NAME(LOC) 5N.1; GLUCOSE,POINT OF CARE 191 MG/DL (70-110)
[2019-12-30] MEDS ORDERED: INSULIN GLARGINE,HUM.REC.ANLOG 100 UNITS/ML SQ SCH ×2 (21:00)
[2019-12-30 23:20] LABS: GLUCOMETER DEV NAME(LOC) 5N.1; GLUCOSE,POINT OF CARE 256 MG/DL (70-110)
[2019-12-31] VITALS (7 sets, daily range): BP systolic 92–114; BP diastolic 60–67
[2019-12-31] MEDS: HEPARIN SODIUM,PORCINE 5,000 UNITS/ML VIAL SQ SCH ×3 (01:59→16:06)
[2019-12-31] MEDS: INSULIN LISPRO 100 UNITS/ML SQ PRN ×4 (04:13→20:56)
[2019-12-31 04:30] LABS: GLUCOMETER DEV NAME(LOC) 5S.1; GLUCOSE,POINT OF CARE 229 MG/DL (70-110)
[2019-12-31 04:44] LABS: GLUCOMETER DEV NAME(LOC) 5N.1; GLUCOSE,POINT OF CARE 106 MG/DL (70-110)
[2019-12-31 06:57] LABS: BASOPHILS % (AUTO) 0.7 % (0.0-2.0); EOSINOPHILS % (AUTO) 2.3 % (1.0-6.0); HEMATOCRIT 44.6 % (36-46); HEMOGLOBIN 14.5 g/dL (12.0-16.0); LYMPHOCYTES # (AUTO) 2.5 K/uL (1.0-4.8); LYMPHOCYTES % (AUTO) 42.3 % (22.0-44.0); MEAN CORPUSCULAR HEMOGLOBIN 28.4 pg (26.0-34.0); MEAN CORPUSCULAR HGB CONC 32.6 G/dL (31.0-37.0); MEAN CORPUSCULAR VOLUME 87 fL (80-100); MONOCYTES # (AUTO) 0.4 K/uL (0.1-1.0); MONOCYTES % (AUTO) 6.3 % (2.0-9.0); NEUTROPHILS # (AUTO) 2.8 K/uL (1.8-7.7); NEUTROPHILS % (AUTO) 48.4 % (40.0-70.0); PLATELET COUNT (AUTO) 235 K/uL (150-450); RED BLOOD CELL COUNT(AUTO) 5.11 MIL/uL (4.00-5.20); RED CELL DISTRIBUTION WIDTH 14.2 % (11.5-14.5)
[2019-12-31 07:17] LABS: GLUCOMETER DEV NAME(LOC) 5S.1; GLUCOSE,POINT OF CARE 44 MG/DL (70-110)
[2019-12-31 07:34] LABS: ALANINE AMINOTRANSFERASE 13 U/L (12-78); ALBUMIN 2.9 g/dL (3.4-5.0); ALKALINE PHOSPHATASE 61 U/L (46-116); ANION GAP 7 mmol/L (8-16); ASPARTATE AMINOTRANSFERASE 14 U/L (15-37); BILIRUBIN,TOTAL 0.3 mg/dL (0.1-1.0); CALCIUM, TOTAL 8.9 mg/dL (8.8-10.5); CARBON DIOXIDE 26 mmol/L (22-29); CHLORIDE 102 mmol/L (98-107); CREATININE 0.82 mg/dL (0.60-1.30); GLOMERULAR FILTR. RATE CALC > 60 mL/min (>60); GLUCOSE,RANDOM 51 mg/dL (70-110); POTASSIUM 3.6 mmol/L (3.5-5.1); SODIUM SERUM 135 mmol/L (136-145); TOTAL PROTEIN, SERUM 6.4 g/dL (6.4-8.2); UREA NITROGEN, BLOOD 15 mg/dL (7-18)
[2019-12-31 07:53] LABS: GLUCOMETER DEV NAME(LOC) 5N.1; GLUCOSE,POINT OF CARE 98 MG/DL (70-110)
[2019-12-31] MEDS: PANTOPRAZOLE SODIUM 40 MG DR TABLET PO SCH (08:15)
[2019-12-31] MEDS: LORazepam 2 MG TABLET PO SCH ×4 (08:15→20:53)
[2019-12-31] MEDS ORDERED: INSULIN GLARGINE,HUM.REC.ANLOG 100 UNITS/ML SQ SCH (09:00)
[2019-12-31] MEDS ORDERED: INSULIN GLARGINE,HUM.REC.ANLOG 100 UNITS/ML SQ ONE (11:30)
[2019-12-31 18:44] LABS: GLUCOMETER DEV NAME(LOC) 5N.1; GLUCOSE,POINT OF CARE 343 MG/DL (70-110)
[2019-12-31 18:44] LABS: GLUCOMETER DEV NAME(LOC) 5S.1; GLUCOSE,POINT OF CARE 209 MG/DL (70-110)
[2019-12-31] MEDS: INSULIN GLARGINE,HUM.REC.ANLOG 100 UNITS/ML SQ SCH (20:58)
[2019-12-31 23:13] LABS: GLUCOMETER DEV NAME(LOC) 5S.1; GLUCOSE,POINT OF CARE 120 MG/DL (70-110)
[2020-01-01] MEDS: HEPARIN SODIUM,PORCINE 5,000 UNITS/ML VIAL SQ SCH ×4 (00:31→23:52)
[2020-01-01 00:52] VITALS: BP 92/65
[2020-01-01 01:46] LABS: GLUCOMETER DEV NAME(LOC) 5S.1; GLUCOSE,POINT OF CARE 165 MG/DL (70-110)
[2020-01-01 04:22] VITALS: BP 96/66
[2020-01-01] MEDS: INSULIN LISPRO 100 UNITS/ML SQ PRN ×3 (04:32→17:36)
[2020-01-01 07:16] VITALS: BP 101/65
[2020-01-01 08:28] LABS: BASOPHILS % (AUTO) 1.5 % (0.0-2.0); EOSINOPHILS % (AUTO) 1.8 % (1.0-6.0); HEMATOCRIT 41.5 % (36-46); LYMPHOCYTES # (AUTO) 2.3 K/uL (1.0-4.8); LYMPHOCYTES % (AUTO) 34.9 % (22.0-44.0); MEAN CORPUSCULAR HGB CONC 33.7 G/dL (31.0-37.0); MEAN CORPUSCULAR VOLUME 86 fL (80-100); MONOCYTES # (AUTO) 0.5 K/uL (0.1-1.0); MONOCYTES % (AUTO) 7.1 % (2.0-9.0); NEUTROPHILS # (AUTO) 3.6 K/uL (1.8-7.7); NEUTROPHILS % (AUTO) 54.7 % (40.0-70.0); PLATELET COUNT (AUTO) 214 K/uL (150-450); RED BLOOD CELL COUNT(AUTO) 4.83 MIL/uL (4.00-5.20); RED CELL DISTRIBUTION WIDTH 14.3 % (11.5-14.5)
[2020-01-01] MEDS: PANTOPRAZOLE SODIUM 40 MG DR TABLET PO SCH (08:36)
[2020-01-01] MEDS: LORazepam 1 MG TABLET PO SCH ×3 (08:39→20:13)
[2020-01-01 08:51] LABS: ALANINE AMINOTRANSFERASE 14 U/L (12-78); ALBUMIN 3.1 g/dL (3.4-5.0); ALKALINE PHOSPHATASE 63 U/L (46-116); ANION GAP 5 mmol/L (8-16); ASPARTATE AMINOTRANSFERASE 14 U/L (15-37); BILIRUBIN,TOTAL 0.2 mg/dL (0.1-1.0); CALCIUM, TOTAL 9.2 mg/dL (8.8-10.5); CARBON DIOXIDE 28 mmol/L (22-29); CHLORIDE 102 mmol/L (98-107); CREATININE 0.82 mg/dL (0.60-1.30); GLOMERULAR FILTR. RATE CALC > 60 mL/min (>60); GLUCOSE,RANDOM 115 mg/dL (70-110); POTASSIUM 3.6 mmol/L (3.5-5.1); SODIUM SERUM 135 mmol/L (136-145); TOTAL PROTEIN, SERUM 6.6 g/dL (6.4-8.2); UREA NITROGEN, BLOOD 13 mg/dL (7-18)
[2020-01-01] MEDS: INSULIN GLARGINE,HUM.REC.ANLOG 100 UNITS/ML SQ SCH ×2 (08:53→21:00)
[2020-01-01 10:43] VITALS: BP 98/58
[2020-01-01 11:41] LABS: GLUCOMETER DEV NAME(LOC) 5N.1; GLUCOSE,POINT OF CARE 369 MG/DL (70-110)
[2020-01-01 11:41] LABS: GLUCOMETER DEV NAME(LOC) 5S.1; GLUCOSE,POINT OF CARE 275 MG/DL (70-110)
[2020-01-01] MEDS: FLUoxetine HCL 20 MG CAPSULE PO SCH (13:10)
[2020-01-01 15:38] VITALS: BP 102/66
[2020-01-01 17:54] LABS: GLUCOMETER DEV NAME(LOC) 5S.1; GLUCOSE,POINT OF CARE 237 MG/DL (70-110)
[2020-01-01 20:08] VITALS: BP 102/63
[2020-01-01] MEDS: LORazepam 1 MG TABLET PO PRN (23:53)
[2020-01-02 00:24] VITALS: BP 94/56
[2020-01-02 01:34] LABS: GLUCOMETER DEV NAME(LOC) 5S.1; GLUCOSE,POINT OF CARE 94 MG/DL (70-110)
[2020-01-02] MEDS: LORazepam 1 MG TABLET PO PRN (02:13)
[2020-01-02 04:35] VITALS: BP 115/63
[2020-01-02] MEDS: INSULIN LISPRO 100 UNITS/ML SQ PRN ×4 (06:41→21:59)
[2020-01-02] MEDS ORDERED: LORazepam 1 MG TABLET PO PRN ×2 (07:00→09:45)
[2020-01-02 07:22] VITALS: BP 95/62
[2020-01-02 08:17] LABS: BASOPHILS % (AUTO) 0.7 % (0.0-2.0); EOSINOPHILS % (AUTO) 1.3 % (1.0-6.0); HEMATOCRIT 40.1 % (36-46); HEMOGLOBIN 13.7 g/dL (12.0-16.0); LYMPHOCYTES # (AUTO) 2.7 K/uL (1.0-4.8); LYMPHOCYTES % (AUTO) 33.8 % (22.0-44.0); MEAN CORPUSCULAR HEMOGLOBIN 29.5 pg (26.0-34.0); MEAN CORPUSCULAR HGB CONC 34.1 G/dL (31.0-37.0); MEAN CORPUSCULAR VOLUME 86 fL (80-100); MONOCYTES # (AUTO) 0.4 K/uL (0.1-1.0); MONOCYTES % (AUTO) 5.4 % (2.0-9.0); NEUTROPHILS # (AUTO) 4.7 K/uL (1.8-7.7); NEUTROPHILS % (AUTO) 58.8 % (40.0-70.0); PLATELET COUNT (AUTO) 199 K/uL (150-450); RED BLOOD CELL COUNT(AUTO) 4.64 MIL/uL (4.00-5.20); RED CELL DISTRIBUTION WIDTH 14.1 % (11.5-14.5)
[2020-01-02] MEDS: HEPARIN SODIUM,PORCINE 5,000 UNITS/ML VIAL SQ SCH ×2 (08:30→16:55)
[2020-01-02] MEDS: LORazepam 1 MG TABLET PO SCH (08:30)
[2020-01-02] MEDS: PANTOPRAZOLE SODIUM 40 MG DR TABLET PO SCH (08:30)
[2020-01-02] MEDS ORDERED: INSULIN LISPRO 100 UNITS/ML SQ ONE (08:30)
[2020-01-02] MEDS: INSULIN GLARGINE,HUM.REC.ANLOG 100 UNITS/ML SQ SCH ×2 (08:32→22:00)
[2020-01-02 08:33] LABS: ALANINE AMINOTRANSFERASE 13 U/L (12-78); ALBUMIN 3.1 g/dL (3.4-5.0); ALKALINE PHOSPHATASE 67 U/L (46-116); ANION GAP 9 mmol/L (8-16); ASPARTATE AMINOTRANSFERASE 11 U/L (15-37); BILIRUBIN,TOTAL 0.4 mg/dL (0.1-1.0); CALCIUM, TOTAL 9.2 mg/dL (8.8-10.5); CARBON DIOXIDE 27 mmol/L (22-29); CHLORIDE 97 mmol/L (98-107); CREATININE 1.04 mg/dL (0.60-1.30); GLOMERULAR FILTR. RATE CALC > 60 mL/min (>60); POTASSIUM 3.4 mmol/L (3.5-5.1); SODIUM SERUM 133 mmol/L (136-145); TOTAL PROTEIN, SERUM 6.7 g/dL (6.4-8.2); UREA NITROGEN, BLOOD 13 mg/dL (7-18)
[2020-01-02 08:35] LABS: GLUCOSE,RANDOM 430 mg/dL (70-110)
[2020-01-02 09:26] LABS: GLUCOMETER DEV NAME(LOC) 4E.2; GLUCOSE,POINT OF CARE 518 MG/DL (70-110)
[2020-01-02 09:26] LABS: GLUCOMETER DEV NAME(LOC) 6S.1; GLUCOSE,POINT OF CARE 573 MG/DL (70-110)
[2020-01-02 09:26] LABS: GLUCOMETER DEV NAME(LOC) 6S.1; GLUCOSE,POINT OF CARE 424 MG/DL (70-110)
[2020-01-02] MEDS: FLUoxetine HCL 20 MG CAPSULE PO SCH (12:20)
[2020-01-02 17:19] LABS: GLUCOMETER DEV NAME(LOC) 4E.2; GLUCOSE,POINT OF CARE 157 MG/DL (70-110)
[2020-01-02 18:43] LABS: GLUCOMETER DEV NAME(LOC) 6S.1; GLUCOSE,POINT OF CARE 331 MG/DL (70-110)
[2020-01-02] MEDS ORDERED: POTASSIUM CHLORIDE 20 MEQ ER TABLET PO ONE (19:00)
[2020-01-02 20:35] VITALS: BP 105/69
[2020-01-02] MEDS: HydrOXYzine PAMOATE 50 MG CAPSULE PO PRN (21:53)
[2020-01-02] MEDS: ACETAMINOPHEN 325 MG TABLET PO PRN (21:53)
[2020-01-02] MEDS: ONDANSETRON HCL 4 MG/2 ML VIAL IVP PRN (22:18)
[2020-01-03] MEDS: HEPARIN SODIUM,PORCINE 5,000 UNITS/ML VIAL SQ SCH ×4 (00:14→23:24)
[2020-01-03] MEDS ORDERED: ZOLPIDEM TARTRATE 5 MG TABLET PO ONE (00:15)
[2020-01-03 03:53] LABS: GLUCOMETER DEV NAME(LOC) 6S.1; GLUCOSE,POINT OF CARE 182 MG/DL (70-110)
[2020-01-03 06:10] VITALS: BP 107/63
[2020-01-03] MEDS: INSULIN LISPRO 100 UNITS/ML SQ PRN ×4 (06:17→20:07)
[2020-01-03] MEDS: PANTOPRAZOLE SODIUM 40 MG DR TABLET PO SCH (08:22)
[2020-01-03] MEDS: FLUoxetine HCL 20 MG CAPSULE PO SCH (08:22)
[2020-01-03 08:23] VITALS: BP 99/64
[2020-01-03] MEDS: INSULIN GLARGINE,HUM.REC.ANLOG 100 UNITS/ML SQ SCH ×2 (08:23→20:08)
[2020-01-03] MEDS ORDERED: MethylPREDNISolone SOD SUCC 125 MG/2 ML VIAL ONE (09:05)
[2020-01-03] MEDS: ACETAMINOPHEN 325 MG TABLET PO PRN (09:14)
[2020-01-03] MEDS ORDERED: INSLAN SQ (11:49)
[2020-01-03] MEDS ORDERED: BACTDSB PO (11:56)
[2020-01-03] MEDS ORDERED: CEPH-582 PO (11:57)
[2020-01-03] MEDS: CEPHALEXIN MONOHYDRATE 500 MG CAPSULE PO SCH ×2 (15:43→20:05)
[2020-01-03] MEDS: HydrOXYzine PAMOATE 50 MG CAPSULE PO PRN (17:30)
[2020-01-03 18:34] VITALS: BP 100/53
[2020-01-03 19:00] VITALS: BP 97/68
[2020-01-03] MEDS: SULFAMETHOX/TRIMETH DS 800-160 MG/TABLET PO SCH (20:05)
[2020-01-03 20:11] LABS: GLUCOMETER DEV NAME(LOC) 4E.2; GLUCOSE,POINT OF CARE 395 MG/DL (70-110)
[2020-01-03 20:11] LABS: GLUCOMETER DEV NAME(LOC) 4E.2; GLUCOSE,POINT OF CARE 223 MG/DL (70-110)
[2020-01-03 20:11] LABS: GLUCOMETER DEV NAME(LOC) 4E.2; GLUCOSE,POINT OF CARE 186 MG/DL (70-110)
[2020-01-03 20:47] LABS: GLUCOMETER DEV NAME(LOC) 6S.1; GLUCOSE,POINT OF CARE 271 MG/DL (70-110)
[2020-01-04] MEDS: HydrOXYzine PAMOATE 50 MG CAPSULE PO PRN ×3 (01:01→23:14)
[2020-01-04] MEDS: INSULIN LISPRO 100 UNITS/ML SQ PRN ×4 (04:00→20:14)
[2020-01-04] MEDS: ACETAMINOPHEN 325 MG TABLET PO PRN ×2 (04:01→13:06)
[2020-01-04 04:05] LABS: GLUCOMETER DEV NAME(LOC) 6S.1; GLUCOSE,POINT OF CARE 256 MG/DL (70-110)
[2020-01-04 08:14] VITALS: BP 106/70
[2020-01-04] MEDS: HEPARIN SODIUM,PORCINE 5,000 UNITS/ML VIAL SQ SCH ×2 (08:23→16:59)
[2020-01-04] MEDS: INSULIN GLARGINE,HUM.REC.ANLOG 100 UNITS/ML SQ SCH ×2 (08:26→20:13)
[2020-01-04] MEDS: SULFAMETHOX/TRIMETH DS 800-160 MG/TABLET PO SCH ×2 (08:26→20:07)
[2020-01-04] MEDS: CEPHALEXIN MONOHYDRATE 500 MG CAPSULE PO SCH ×3 (08:26→20:07)
[2020-01-04] MEDS: FLUoxetine HCL 20 MG CAPSULE PO SCH (08:26)
[2020-01-04] MEDS: PANTOPRAZOLE SODIUM 40 MG DR TABLET PO SCH (08:26)
[2020-01-04 11:58] LABS: GLUCOMETER DEV NAME(LOC) 4E.2; GLUCOSE,POINT OF CARE 122 MG/DL (70-110)
[2020-01-04 17:00] VITALS: BP 93/56
[2020-01-04 19:00] VITALS: BP 90/55
[2020-01-04] MEDS: MELATONIN 5 MG TABLET PO PRN (22:39)
[2020-01-04 23:15] VITALS: BP 118/68
[2020-01-05 03:17] LABS: GLUCOMETER DEV NAME(LOC) 4E.2; GLUCOSE,POINT OF CARE 160 MG/DL (70-110)
[2020-01-05 03:17] LABS: GLUCOMETER DEV NAME(LOC) 4E.2; GLUCOSE,POINT OF CARE 53 MG/DL (70-110)
[2020-01-05 03:17] LABS: GLUCOMETER DEV NAME(LOC) 6S.1; GLUCOSE,POINT OF CARE 294 MG/DL (70-110)
[2020-01-05 03:17] LABS: GLUCOMETER DEV NAME(LOC) 6S.1; GLUCOSE,POINT OF CARE 244 MG/DL (70-110)
[2020-01-05 03:18] LABS: GLUCOMETER DEV NAME(LOC) 4E.2; GLUCOSE,POINT OF CARE 178 MG/DL (70-110)
[2020-01-05] MEDS: INSULIN LISPRO 100 UNITS/ML SQ PRN ×3 (06:30→19:56)
[2020-01-05 06:54] LABS: GLUCOMETER DEV NAME(LOC) 6S.1; GLUCOSE,POINT OF CARE 313 MG/DL (70-110)
[2020-01-05] MEDS: CEPHALEXIN MONOHYDRATE 500 MG CAPSULE PO SCH ×3 (08:07→19:45)
[2020-01-05] MEDS: PANTOPRAZOLE SODIUM 40 MG DR TABLET PO SCH (08:07)
[2020-01-05] MEDS: SULFAMETHOX/TRIMETH DS 800-160 MG/TABLET PO SCH ×2 (08:07→19:45)
[2020-01-05] MEDS: FLUoxetine HCL 20 MG CAPSULE PO SCH (08:07)
[2020-01-05] MEDS: HEPARIN SODIUM,PORCINE 5,000 UNITS/ML VIAL SQ SCH ×3 (08:07→16:30)
[2020-01-05] MEDS: INSULIN GLARGINE,HUM.REC.ANLOG 100 UNITS/ML SQ SCH (08:12)
[2020-01-05 09:02] VITALS: BP 110/76
[2020-01-05 16:02] LABS: GLUCOMETER DEV NAME(LOC) 6S.1; GLUCOSE,POINT OF CARE 167 MG/DL (70-110)
[2020-01-05 18:13] LABS: GLUCOMETER DEV NAME(LOC) 6S.1; GLUCOSE,POINT OF CARE 350 MG/DL (70-110)
[2020-01-05] MEDS: MELATONIN 5 MG TABLET PO PRN (19:45)
[2020-01-05 19:55] VITALS: BP 106/70
[2020-01-05] MEDS: ACETAMINOPHEN 325 MG TABLET PO PRN (20:51)
[2020-01-05] MEDS ORDERED: INSULIN GLARGINE,HUM.REC.ANLOG 100 UNITS/ML SQ SCH (21:00)
[2020-01-05 22:28] LABS: GLUCOMETER DEV NAME(LOC) 6S.1; GLUCOSE,POINT OF CARE 279 MG/DL (70-110)
[2020-01-06 00:39] LABS: GLUCOMETER DEV NAME(LOC) 4E.2; GLUCOSE,POINT OF CARE 149 MG/DL (70-110)
[2020-01-06 00:39] LABS: GLUCOMETER DEV NAME(LOC) 4E.2; GLUCOSE,POINT OF CARE 40 MG/DL (70-110)
[2020-01-06] MEDS: ACETAMINOPHEN 325 MG TABLET PO PRN ×2 (03:12→14:10)
[2020-01-06] MEDS: ONDANSETRON HCL 4 MG/2 ML VIAL IVP PRN ×2 (03:34→14:19)
[2020-01-06 03:48] VITALS: BP 101/64
[2020-01-06] MEDS: INSULIN LISPRO 100 UNITS/ML SQ PRN ×2 (05:57→21:33)
[2020-01-06 06:55] LABS: GLUCOMETER DEV NAME(LOC) 6S.1; GLUCOSE,POINT OF CARE 414 MG/DL (70-110)
[2020-01-06] MEDS: HEPARIN SODIUM,PORCINE 5,000 UNITS/ML VIAL SQ SCH ×3 (08:00→15:45)
[2020-01-06] MEDS: PANTOPRAZOLE SODIUM 40 MG DR TABLET PO SCH (08:27)
[2020-01-06] MEDS: CEPHALEXIN MONOHYDRATE 500 MG CAPSULE PO SCH ×3 (08:27→19:40)
[2020-01-06] MEDS: SULFAMETHOX/TRIMETH DS 800-160 MG/TABLET PO SCH ×2 (08:27→19:40)
[2020-01-06] MEDS: FLUoxetine HCL 20 MG CAPSULE PO SCH (08:27)
[2020-01-06 09:00] VITALS: BP 102/75
[2020-01-06] MEDS ORDERED: INSULIN GLARGINE,HUM.REC.ANLOG 100 UNITS/ML SQ SCH ×2 (09:00→21:00)
[2020-01-06 09:27] LABS: GLUCOMETER DEV NAME(LOC) 4E.2; GLUCOSE,POINT OF CARE 130 MG/DL (70-110)
[2020-01-06 10:06] VITALS: BP 102/75
[2020-01-06 12:14] LABS: GLUCOMETER DEV NAME(LOC) 4E.2; GLUCOSE,POINT OF CARE 107 MG/DL (70-110)
[2020-01-06 17:39] LABS: GLUCOMETER DEV NAME(LOC) 4E.2; GLUCOSE,POINT OF CARE > 600 MG/DL (70-110)
[2020-01-06] MEDS ORDERED: INSULIN LISPRO 100 UNITS/ML SQ ONE ×2 (17:45)
[2020-01-06] MEDS: BusPIRone HCL 15 MG TABLET PO SCH (19:40)
[2020-01-06] MEDS: TraZODone HCL 100 MG TABLET PO SCH (19:40)
[2020-01-06 20:00] LABS: GLUCOMETER DEV NAME(LOC) 4E.2; GLUCOSE,POINT OF CARE > 600 MG/DL (70-110)
[2020-01-06 20:16] VITALS: BP 100/70
[2020-01-07 00:16] LABS: GLUCOMETER DEV NAME(LOC) 6S.1; GLUCOSE,POINT OF CARE 39 MG/DL (70-110)
[2020-01-07] MEDS: MELATONIN 5 MG TABLET PO PRN ×2 (00:29→22:50)
[2020-01-07] MEDS: ACETAMINOPHEN 325 MG TABLET PO PRN ×3 (00:29→22:49)
[2020-01-07 00:30] VITALS: BP 101/71
[2020-01-07] MEDS: ONDANSETRON HCL 4 MG/2 ML VIAL IVP PRN (00:31)
[2020-01-07 01:51] LABS: GLUCOMETER DEV NAME(LOC) 6S.1; GLUCOSE,POINT OF CARE 78 MG/DL (70-110)
[2020-01-07 04:32] VITALS: BP 97/68
[2020-01-07] MEDS: INSULIN LISPRO 100 UNITS/ML SQ PRN ×4 (05:36→20:39)
[2020-01-07 06:09] LABS: GLUCOMETER DEV NAME(LOC) 6S.1; GLUCOSE,POINT OF CARE 566 MG/DL (70-110)
[2020-01-07] MEDS: HEPARIN SODIUM,PORCINE 5,000 UNITS/ML VIAL SQ SCH ×3 (08:00→16:00)
[2020-01-07] MEDS: SULFAMETHOX/TRIMETH DS 800-160 MG/TABLET PO SCH ×2 (08:13→20:30)
[2020-01-07] MEDS: CEPHALEXIN MONOHYDRATE 500 MG CAPSULE PO SCH ×3 (08:13→20:30)
[2020-01-07] MEDS: BusPIRone HCL 15 MG TABLET PO SCH ×2 (08:13→20:30)
[2020-01-07] MEDS: PANTOPRAZOLE SODIUM 40 MG DR TABLET PO SCH (08:13)
[2020-01-07] MEDS: FLUoxetine HCL 20 MG CAPSULE PO SCH (08:14)
[2020-01-07 08:15] VITALS: BP 97/57
[2020-01-07] MEDS: INSULIN GLARGINE,HUM.REC.ANLOG 100 UNITS/ML SQ SCH (08:18)
[2020-01-07 20:20] VITALS: BP 113/72
[2020-01-07] MEDS: GABAPENTIN 300 MG CAPSULE PO SCH (20:30)
[2020-01-07] MEDS: TraZODone HCL 100 MG TABLET PO SCH (20:30)
[2020-01-07] MEDS ORDERED: INSULIN GLARGINE,HUM.REC.ANLOG 100 UNITS/ML SQ SCH (21:00)
[2020-01-07 21:52] LABS: GLUCOMETER DEV NAME(LOC) 6S.1; GLUCOSE,POINT OF CARE 142 MG/DL (70-110)
[2020-01-07 21:52] LABS: GLUCOMETER DEV NAME(LOC) 6S.1; GLUCOSE,POINT OF CARE 186 MG/DL (70-110)
[2020-01-08 04:19] LABS: GLUCOMETER DEV NAME(LOC) 4E.2; GLUCOSE,POINT OF CARE 233 MG/DL (70-110)
[2020-01-08 04:19] LABS: GLUCOMETER DEV NAME(LOC) 4E.2; GLUCOSE,POINT OF CARE 224 MG/DL (70-110)
[2020-01-08 04:19] LABS: GLUCOMETER DEV NAME(LOC) 4E.2; GLUCOSE,POINT OF CARE 238 MG/DL (70-110)
[2020-01-08 04:43] VITALS: BP 99/59
[2020-01-08] MEDS: INSULIN LISPRO 100 UNITS/ML SQ PRN ×2 (05:48→12:02)
[2020-01-08 06:02] LABS: GLUCOMETER DEV NAME(LOC) 4E.2; GLUCOSE,POINT OF CARE 333 MG/DL (70-110)
[2020-01-08] MEDS: HEPARIN SODIUM,PORCINE 5,000 UNITS/ML VIAL SQ SCH ×2 (08:00)
[2020-01-08 08:19] VITALS: BP 95/58
[2020-01-08] MEDS: GABAPENTIN 300 MG CAPSULE PO SCH (08:29)
[2020-01-08] MEDS: PANTOPRAZOLE SODIUM 40 MG DR TABLET PO SCH (08:30)
[2020-01-08] MEDS: CEPHALEXIN MONOHYDRATE 500 MG CAPSULE PO SCH (08:30)
[2020-01-08] MEDS: FLUoxetine HCL 20 MG CAPSULE PO SCH (08:30)
[2020-01-08] MEDS: SULFAMETHOX/TRIMETH DS 800-160 MG/TABLET PO SCH (08:31)
[2020-01-08] MEDS: BusPIRone HCL 15 MG TABLET PO SCH (08:32)
[2020-01-08] MEDS: INSULIN GLARGINE,HUM.REC.ANLOG 100 UNITS/ML SQ SCH (08:34)
[2020-01-08 11:54] LABS: GLUCOMETER DEV NAME(LOC) 4E.2; GLUCOSE,POINT OF CARE 124 MG/DL (70-110)
[2020-01-08 11:54] LABS: GLUCOMETER DEV NAME(LOC) 6S.1; GLUCOSE,POINT OF CARE 80 MG/DL (70-110)
[2020-01-08] MEDS ORDERED: GABA-1181 PO (12:55)
[2020-01-08] MEDS ORDERED: TRAZADONE PO (12:55)
[2020-01-08] MEDS ORDERED: FLOUXETINE PO (12:55)
[2020-01-08] MEDS ORDERED: BUSP15 PO (12:55)
[2020-01-08] MEDS ORDERED: CEPH-582 PO (13:06)
[2020-01-08] MEDS ORDERED: [UNRECOGNIZED DRUG - OTHER] PO (13:06)
[2020-01-08 14:31] VITALS: BP 125/59
== END 2020-01-08 15:35 | DRG 885 ==
LOC: EMS 00:14 → 6S 04:31 → UNDOADMIN 04:31 → 6S 04:59 → 5S 10:36 → 6S 12:35 → 5S 12:35 → 6S 01-02 04:00
PROVIDERS: ADMIT Internal Medicine; ATTEND Internal Medicine
DX: F33.2 Major depressive disorder, recurrent severe without psychotic features (principal); R45.851 Suicidal ideations; F10.231 Alcohol dependence with withdrawal delirium; N39.0 Urinary tract infection, site not specified; R07.89 Other chest pain; E11.65 Type 2 diabetes mellitus with hyperglycemia; F41.9 Anxiety disorder, unspecified; F15.10 Other stimulant abuse, uncomplicated; L02.426 Furuncle of left lower limb; Z79.4 Long term (current) use of insulin; Z91.14 Patient's other noncompliance with medication regimen; Z79.899 Other long term (current) drug therapy
CPT/HCPCS: 82947; 83036; 87086; 87426; 93005; G0480; J1644; J1815; J2405; J2930